=== PATIENT | female | born 1960 | race Caucasian/White ===

== ENCOUNTER 2018-04-19 06:49 | Emergency (ER) | payer MEDICAID ==
[~2018-04-19] VITALS: Ht 160 cm; Wt 141.7 kg
--- NOTE | 2018-04-19 07:22 | NUR ---
patient to ct.
--- NOTE | 2018-04-19 07:34 | NUR ---
patent back in the room.
[2018-04-19 08:00] VITALS: BP 150/79
== END 2018-04-19 08:34 | disposition home or self-care (01) ==
LOC: ER 06:50
DX: S00.12XA Contusion of left eyelid and periocular area, initial encounter (principal); I10 Essential (primary) hypertension; Z91.041 Radiographic dye allergy status; W18.39XA Other fall on same level, initial encounter; Y93.89 Activity, other specified; Y92.89 Other specified places as the place of occurrence of the external cause; Y99.8 Other external cause status
CPT/HCPCS: 70486; 99284

== ENCOUNTER 2019-08-30 11:46 | Emergency (ER) | payer MEDICAID ==
[~2019-08-30] VITALS: Ht 160 cm; Wt 110.7 kg
[2019-08-30] MEDS ORDERED: ketorolac tromethamine 15mg/ml inj. IM ONE (12:45)
[2019-08-30] MEDS ORDERED: dexamethasone sod phosphate 10mg/ml inj IV STA (12:48)
[2019-08-30] MEDS ORDERED: morphine 4 MG/ML inj SYRINge IV ONE ×2 (12:50→19:20)
[2019-08-30 20:23] VITALS: BP 133/78
[2019-08-31] MEDS ORDERED: pantoprazole 40mg Tablet.DR PO SCH (07:30)
== END 2019-08-30 20:28 | disposition short-term general hospital (02) ==
LOC: ER 11:47
DX: M79.604 Pain in right leg (principal); G89.29 Other chronic pain; M54.5 Low back pain; R29.818 Other symptoms and signs involving the nervous system; I10 Essential (primary) hypertension; Z85.9 Personal history of malignant neoplasm, unspecified; Z79.899 Other long term (current) drug therapy
CPT/HCPCS: 72148; 96372; 96374; 96375; 96376; 99285; J1100; J1885; J2270